=== PATIENT | female | born 1990 | race Caucasian/White ===

== ENCOUNTER 2017-04-13 01:03 | Emergency (ER) | payer OTHER ==
[~2017-04-13] VITALS: Ht 157.5 cm; Wt 89.0 kg
[~2017-04-13 01:03] MED LIST: /CELE20CA PO; /MOM400 PO; /ROPI5TA PO; ALEV1TAB PO; ATIV0.5T3 PO; AUGM875T27 PO; BACL10TA PO; BENA25TA4 PO; CELE40TA PO; COLA50CA3 PO; CYMB60CA3 PO; DILA4TAB PO; FLAG500T PO; HYDR-3363 PO; HYDR10EL PO; HYDR10TA16 PO; LEXA5SOL PO; LUNE1TAB9 PO; METH1TAB PO; METO5TAB2 PO; MULTCAP11 PO; NAPR500T PO; NEUR600T PO; NO HOME MEDS; OXYC-208 PO; OXYC30TA4 PO; OXYCO5TA PO; PERC5TAB6 PO; REGL5TAB2 PO; ROZE8TAB9 PO; TRAZ10TA PO; TYLE325T5 PO; VIST25CA PO; VITA100041 PO; ZYRT10TA2 PO; [UNRECOGNIZED DRUG - OTHER] EXT; [UNRECOGNIZED DRUG - OTHER] OU
[2017-04-13] MEDS ORDERED: OMEP40CA2 PO (01:13)
[2017-04-13] MEDS ORDERED: AUGM500T34 PO (03:07)
[2017-04-13] MEDS ORDERED: AUGMENTIN 500 MG TAB PO ONE (03:15)
[2017-04-13 03:28] VITALS: BP 138/68
== END 2017-04-13 03:30 | disposition home or self-care (01) ==
LOC: M ED 01:58
DX: S00.81XA Abrasion of other part of head, initial encounter (principal); S40.819A Abrasion of unspecified upper arm, initial encounter; S30.810A Abrasion of lower back and pelvis, initial encounter; S80.819A Abrasion, unspecified lower leg, initial encounter; W55.03XA Scratched by cat, initial encounter; Y92.89 Other specified places as the place of occurrence of the external cause; Y93.89 Activity, other specified; Y99.8 Other external cause status

== ENCOUNTER → 2017-08-15 | Outpatient (CLI) | payer OTHER ==
[~2017-08-15] MED LIST changes: +AUGM500T34 PO; -DILA4TAB PO; +DILA4TAB13 PO; -LUNE1TAB9 PO; +LUNE2TAB23 PO; +OMEP40CA2 PO; +PERC5TAB12 PO; -PERC5TAB6 PO; +ROZE8TAB16 PO; -ROZE8TAB9 PO
--- NOTE | 2017-08-16 02:43 | REP ---
Clinical: Shortness of breath . Comparison: 09/29/2016 . Technique: PA and lateral. Findings: The mediastinum and cardiac silhouette are normal. The lung alcantara are clear and without acute consolidation, effusion, or pneumothorax. The skeletal structures are intact and normal. Impression: 1. No acute cardiopulmonary process. If the patient remains symptomatic consider chest CT for further investigation. Signed by Wiley Johns MD 08/16/2017 02:34 A
== END ==
LOC: M RAD 16:33
PROVIDERS: ATTEND Nurse Practitioner
DX: R06.02 Shortness of breath (principal); R05 Cough

== ENCOUNTER → 2017-09-28 | Outpatient (REF) | payer OTHER | LOC: M LAB REF 18:51 | PROVIDERS: ATTEND Advanced Practice Midwife | DX: Z12.4 Encounter for screening for malignant neoplasm of cervix (principal) ==

== ENCOUNTER → 2018-01-20 | Outpatient (CLI) | payer OTHER ==
[2018-01-20 15:11] LABS: INR 0.84; PROTHROMBIN TIME 11.6 SECONDS (12.4-14.5)
[2018-01-20 15:25] LABS: ALPHA FETOPROTEIN TUMOR QUANT 3.2 NG/ML (<8.1)
[2018-01-20 15:26] LABS: HEPATITIS B SURFACE ANTIBODY POSITIVE (POSITIVE)
[2018-01-20 15:33] LABS: ALBUMIN/GLOBULIN RATIO 1.08 (1.00-1.93); ALKALINE PHOSPHATASE 153 U/L (45-117); ALT/SGPT 299 U/L (12-78); AST/SGOT 38 U/L (7-37); BILIRUBIN,DIRECT 0.1 MG/DL (0.0-0.2); BILIRUBIN,TOTAL 0.5 MG/DL (0.2-1.0); FERRITIN 75 NG/ML (8-252); IRON (FE) 126 UG/DL (50-170); PERCENT SATURATION 34.2 % (13.2-45.0); TOTAL IRON BINDING CAPACITY 368 UG/DL (250-450); TOTAL PROTEIN 7.7 GM/DL (6.4-8.2)
[2018-01-20 16:07] LABS: HEPATITIS A ANTIBODY IGM NEGATIVE (NEGATIVE)
[2018-01-23 14:25] LABS: ALBUMIN 4.54 GM/DL (3.29-5.55); ALPHA-1-GLOBULIN % 4.7 % (2.9-4.9); ALPHA-1-GLOBULINS 0.36 GM/DL (0.17-0.41); ALPHA-2-GLOBULINS 0.92 GM/DL (0.42-0.99); ALPHA-2-GLOBULINS % 11.9 % (7.1-11.8); BETA-1-GLOBULINS 0.48 GM/DL (0.28-0.60); BETA-1-GLOBULINS % 6.2 % (4.7-7.2); BETA-2-GLOBULINS 0.44 GM/DL (0.19-0.55); BETA-2-GLOBULINS % 5.7 % (3.2-6.5); GAMMA GLOBULIN % 12.5 % (11.1-18.8); GAMMA GLOBULINS 0.96 GM/DL (0.65-1.58)
[2018-01-24 00:07] LABS: ALPHA 1 ANTITRYPSIN 140 mg/dL (90-200); ANTI-MITOCHONDRIAL ANTIBODY 2.7 Units (0.0-20.0); ANTI-SMOOTH MUSCLE ANTIBODY 9 Units (0-19); ANTINUCLEAR ANTIBODIES DIRECT Negative (Negative); CERULOPLASMIN 27.3 mg/dL (19.0-39.0); EBV VIRAL CAPSID AG IgG > 600.0 U/mL (0.0-17.9); EBV VIRAL CAPSID AG IgM <36.0 U/mL (0.0-35.9); HEPATITIS A IgG TOTAL Negative (Negative); LIVER-KIDNEY MICROSOMAL ABY 0.4 Units (0.0-20.0); TISSUE TRANSGLUTAMINASE IgA 2 U/mL (0-3); TISSUE TRANSGLUTAMINASE IgG <2 U/mL (0-5)
[2018-01-24 08:09] LABS: HEPATITIS C QUANTITATION HCV Not Detected IU/mL (.)
== END ==
LOC: M LAB 13:31
DX: K75.89 Other specified inflammatory liver diseases (principal); R10.11 Right upper quadrant pain; R94.5 Abnormal results of liver function studies
CPT/HCPCS: 83550

== ENCOUNTER → 2018-02-20 | Outpatient (CLI) | payer OTHER ==
[~2018-02-20] MED LIST changes: -/CELE20CA PO; -/MOM400 PO; -/ROPI5TA PO; -ALEV1TAB PO; -ATIV0.5T3 PO; -AUGM500T34 PO; -AUGM875T27 PO; -BACL10TA PO; -BENA25TA4 PO; -CELE40TA PO; -COLA50CA3 PO; -CYMB60CA3 PO; -DILA4TAB13 PO; -FLAG500T PO; -HYDR-3363 PO; -HYDR10EL PO; -HYDR10TA16 PO; -LEXA5SOL PO; +LIDOCAINE 1% MDV 20ML VIAL As Ordered; -LUNE2TAB23 PO; -METH1TAB PO; -METO5TAB2 PO; -MULTCAP11 PO; -NAPR500T PO; -NEUR600T PO; -NO HOME MEDS; -OMEP40CA2 PO; -OXYC-208 PO; -OXYC30TA4 PO; -OXYCO5TA PO; -PERC5TAB12 PO; -REGL5TAB2 PO; -ROZE8TAB16 PO; -TRAZ10TA PO; -TYLE325T5 PO; -VIST25CA PO; -VITA100041 PO; -ZYRT10TA2 PO; -[UNRECOGNIZED DRUG - OTHER] EXT; -[UNRECOGNIZED DRUG - OTHER] OU
== END ==
LOC: M RADPRO 08:18
DX: K44.9 Diaphragmatic hernia without obstruction or gangrene (principal); Q45.3 Other congenital malformations of pancreas and pancreatic duct; R10.11 Right upper quadrant pain; R94.5 Abnormal results of liver function studies; R11.2 Nausea with vomiting, unspecified; Z79.899 Other long term (current) drug therapy; Z88.8 Allergy status to other drugs, medicaments and biological substances
CPT/HCPCS: 47000

== ENCOUNTER → 2018-04-03 | Outpatient (CLI) | payer OTHER | LOC: M WUC 09:50 | DX: S90.31XA Contusion of right foot, initial encounter (principal); X58.XXXA Exposure to other specified factors, initial encounter; Y92.89 Other specified places as the place of occurrence of the external cause | CPT/HCPCS: 73630 ==

== ENCOUNTER 2018-07-31 09:12 | Emergency (ER) | payer OTHER ==
[2018-07-31] MEDS: METOCLOPRAMIDE INJ 10MG/2ML VIAL (J2765) IV (10:24)
[2018-07-31] MEDS: KETOROLAC 30 MG/ML VIAL (J1885) IV (10:25)
[2018-07-31] MEDS: diphenhydrAMINE INJ 50MG/ML VIAL (J1200) IV (12:26)
[2018-07-31] MEDS: dexameTHASONE 20 MG/5 ML VIAL (J1100) IV (12:27)
[2018-07-31] MEDS: MORPHINE 4 MG/ML 1ML VIAL/SYRINGE (J2270) IV (12:27)
== END 2018-07-31 14:45 | disposition home or self-care (01) ==
LOC: M ED 09:12
DX: R51 Headache (principal); F41.9 Anxiety disorder, unspecified; J30.2 Other seasonal allergic rhinitis; Z88.5 Allergy status to narcotic agent; Z88.8 Allergy status to other drugs, medicaments and biological substances
CPT/HCPCS: J2270

== ENCOUNTER → 2018-08-10 | Outpatient (CLI) | payer OTHER ==
[2018-08-10 14:24] LABS: BASO % 0.5 % (0.0-1.0); EOS # 0.2 10^3/uL (0.0-0.50); EOS % 3.4 % (0.0-3.0); HEMATOCRIT 40.9 % (36.0-47.0); HEMOGLOBIN 13.8 g/dl (12.0-15.5); IMMATURE GRANULOCYTE % 0.3 % (0-3.0); LYMPH # 1.8 10^3/uL (1.5-6.5); LYMPH % 27.3 % (24.0-44.0); MEAN CORPUSCULAR HEMOGLOBIN 31.5 pg (27.0-33.0); MEAN CORPUSCULAR HGB CONC 33.7 g/dl (32.0-36.5); MEAN CORPUSCULAR VOLUME 93.4 fl (80.0-96.0); MONO # 0.5 10^3/uL (0.0-0.8); MONO % 7.5 % (0.0-5.0); PLATELET COUNT, AUTOMATED 268 10^3/uL (150-450); RED BLOOD COUNT 4.38 10^6/uL (4.00-5.40); RED CELL DISTRIBUTION WIDTH 11.9 % (11.5-14.5); WHITE BLOOD COUNT 6.5 10^3/uL (4.0-10.0)
[2018-08-10 14:35] LABS: INR 0.92; PROTHROMBIN TIME 12.5 SECONDS (12.1-14.4)
[2018-08-10 15:04] LABS: ALBUMIN 3.9 GM/DL (3.2-5.2); ALKALINE PHOSPHATASE 106 U/L (45-117); ALT/SGPT 61 U/L (12-78); AST/SGOT 25 U/L (7-37); BILIRUBIN,DIRECT 0.1 MG/DL (0.0-0.2); BILIRUBIN,TOTAL 0.4 MG/DL (0.2-1.0); TOTAL PROTEIN 6.9 GM/DL (6.4-8.2)
[2018-08-11 12:38] LABS: HEPATITIS C VIRUS ABY INDEX < 0.0 INDEX (<0.8)
== END ==
LOC: M LAB 13:13
DX: G90.1 Familial dysautonomia [Riley-Day] (principal); I95.1 Orthostatic hypotension; R94.5 Abnormal results of liver function studies
CPT/HCPCS: 84443

== ENCOUNTER 2018-08-15 16:48 | Emergency (ER) | payer OTHER ==
[2018-08-15] MEDS: NS 1,000 ML IV (17:30)
[2018-08-15] MEDS: MORPHINE 4 MG/ML 1ML VIAL/SYRINGE (J2270) IV ×2 (18:00→19:13)
[2018-08-15 18:08] LABS: BASO # 0.1 10^3/uL (0.0-0.2); BASO % 0.6 % (0.0-1.0); EOS # 0.2 10^3/uL (0.0-0.50); HEMATOCRIT 42.7 % (36.0-47.0); HEMOGLOBIN 14.7 g/dl (12.0-15.5); IMMATURE GRANULOCYTE % 0.1 % (0-3.0); LYMPH # 2.1 10^3/uL (1.5-6.5); LYMPH % 24.5 % (24.0-44.0); MEAN CORPUSCULAR HEMOGLOBIN 31.5 pg (27.0-33.0); MEAN CORPUSCULAR HGB CONC 34.4 g/dl (32.0-36.5); MEAN CORPUSCULAR VOLUME 91.6 fl (80.0-96.0); MONO # 0.5 10^3/uL (0.0-0.8); NEUTROPHILS # 5.6 10^3/uL (1.8-7.7); NEUTROPHILS % 66.8 % (36.0-66.0); PLATELET COUNT, AUTOMATED 305 10^3/uL (150-450); RED BLOOD COUNT 4.66 10^6/uL (4.00-5.40); WHITE BLOOD COUNT 8.5 10^3/uL (4.0-10.0)
[2018-08-15 18:12] LABS: CONTROL LINE UCG INT CTR LINE PRESENT; URINE PREG TEST NEGATIVE (NEGATIVE)
[2018-08-15 18:23] LABS: KETONE, URINE AUTO RFX NEGATIVE (NEGATIVE); LEUKOCYTE ESTERASE UR AUTO RFX NEGATIVE (NEGATIVE); MUCUS, URINE RFX SMALL (NEGATIVE); NITRITE, URINE AUTO RFX NEGATIVE (NEGATIVE); RBC, URINE AUTO RFX 0 /HPF (0-3); SPECIFIC GRAVITY UR AUTO RFX 1.017 (1.002-1.035); SQUAM EPITHELIAL CELL UR AURFX 1 /HPF (0-6); WBC, URINE AUTO RFX 0 /HPF (0-3)
[2018-08-15 18:28] LABS: INR 0.93; PARTIAL THROMBOPLASTIN TIME 28.6 SECONDS (25.4-37.6); PROTHROMBIN TIME 12.6 SECONDS (12.1-14.4)
[2018-08-15 18:31] LABS: LACTIC ACID SEPSIS PROTOCOL 1.1 MMOL/L (0.4-2.0)
[2018-08-15 18:37] LABS: ALBUMIN 4.2 GM/DL (3.2-5.2); ALBUMIN/GLOBULIN RATIO 1.08 (1.00-1.93); ALKALINE PHOSPHATASE 144 U/L (45-117); ALT/SGPT 107 U/L (12-78); ANION GAP 10 MEQ/L (8-16); AST/SGOT 109 U/L (7-37); BILIRUBIN,DIRECT 0.3 MG/DL (0.0-0.2); BILIRUBIN,TOTAL 0.7 MG/DL (0.2-1.0); BLOOD UREA NITROGEN 10 MG/DL (7-18); CALCIUM LEVEL 8.6 MG/DL (8.5-10.1); CARBON DIOXIDE LEVEL 24 MEQ/L (21-32); CHLORIDE LEVEL 106 MEQ/L (98-107); CK-MB VALUE MASS < 1.0 NG/ML (<3.6); CPK CREATINE PHOSPHOKINASE 122 U/L (26-192); CREATININE FOR GFR 0.74 MG/DL (0.55-1.30); FREE T4 1.25 NG/DL (0.76-1.46); GLOMERULAR FILTRATION RATE > 60.0 (>60); GLUCOSE, FASTING 91 MG/DL (70-100); LIPASE 96 U/L (73-393); MB/CK RELATIVE INDEX 0.82 (< OR =4); POTASSIUM SERUM 3.5 MEQ/L (3.5-5.1); SODIUM LEVEL 140 MEQ/L (136-145); TOTAL PROTEIN 8.1 GM/DL (6.4-8.2); TROPONIN I < 0.02 NG/ML (< 0.10)
[2018-08-15 19:00] LABS: D-DIMER QUANT < 270.0 ng/ml (<500)
[2018-08-15] MEDS ORDERED: ONDANSETRON 4MG/2ML VIAL (J2405) As Ordered (19:11)
[2018-08-15] MEDS: ONDANSETRON 4MG/2ML VIAL (J2405) IV (19:13)
[2018-08-15] MEDS ORDERED: ISOVUE-370 76% 100ML VIAL (Q9967) As Ordered (19:14)
[2018-08-15] MEDS: HYDROMORPHONE HCL 0.5 MG/ 0.5 ML SYRINGE (J1170 PER 1) IV (19:37)
== END 2018-08-15 20:36 | disposition home or self-care (01) ==
LOC: M ED 16:48
DX: R10.11 Right upper quadrant pain (principal); R10.31 Right lower quadrant pain; R79.89 Other specified abnormal findings of blood chemistry; G90.9 Disorder of the autonomic nervous system, unspecified; G43.909 Migraine, unspecified, not intractable, without status migrainosus; M54.9 Dorsalgia, unspecified; Z87.42 Personal history of other diseases of the female genital tract; Z88.5 Allergy status to narcotic agent; J30.2 Other seasonal allergic rhinitis; Z88.8 Allergy status to other drugs, medicaments and biological substances; Z79.899 Other long term (current) drug therapy
CPT/HCPCS: J2270

== ENCOUNTER → 2018-08-18 | Outpatient (CLI) | payer OTHER ==
[2018-08-18 14:28] LABS: HEMATOCRIT 39.4 % (36.0-47.0); HEMOGLOBIN 13.3 g/dl (12.0-15.5); MEAN CORPUSCULAR HEMOGLOBIN 31.8 pg (27.0-33.0); MEAN CORPUSCULAR HGB CONC 33.8 g/dl (32.0-36.5); MEAN CORPUSCULAR VOLUME 94.3 fl (80.0-96.0); PLATELET COUNT, AUTOMATED 296 10^3/uL (150-450); RED BLOOD COUNT 4.18 10^6/uL (4.00-5.40); WHITE BLOOD COUNT 6.7 10^3/uL (4.0-10.0)
[2018-08-18 14:32] LABS: INR 0.94; PROTHROMBIN TIME 12.7 SECONDS (12.1-14.4)
[2018-08-18 14:42] LABS: ALBUMIN 4.1 GM/DL (3.2-5.2); ALBUMIN/GLOBULIN RATIO 1.32 (1.00-1.93); ALKALINE PHOSPHATASE 104 U/L (45-117); ALT/SGPT 60 U/L (12-78); ANION GAP 7 MEQ/L (8-16); AST/SGOT 25 U/L (7-37); BILIRUBIN,TOTAL 0.6 MG/DL (0.2-1.0); BLOOD UREA NITROGEN 11 MG/DL (7-18); CALCIUM LEVEL 9.4 MG/DL (8.5-10.1); CARBON DIOXIDE LEVEL 29 MEQ/L (21-32); CHLORIDE LEVEL 107 MEQ/L (98-107); CREATININE FOR GFR 0.74 MG/DL (0.55-1.30); GAMMA GLUTAMYLTRANSPEPTIDASE 174 U/L (5-55); GLOMERULAR FILTRATION RATE > 60.0 (>60); GLUCOSE, FASTING 91 MG/DL (70-100); POTASSIUM SERUM 3.6 MEQ/L (3.5-5.1); SODIUM LEVEL 143 MEQ/L (136-145); TOTAL PROTEIN 7.2 GM/DL (6.4-8.2)
[2018-08-18 14:49] LABS: ALPHA FETOPROTEIN TUMOR QUANT 2.7 NG/ML (<8.1)
[2018-08-20 01:40] LABS: ANTI-SMOOTH MUSCLE ANTIBODY 8 Units (0-19)
[2018-08-20 01:40] LABS: ANTINUCLEAR ANTIBODIES DIRECT Negative (Negative); HERPES ZOSTER, VARICELLA IgG 376 index (Immune >165); HERPES ZOSTER, VARICELLA IgM <0.91 index (0.00-0.90)
[2018-08-22 00:07] LABS: ANGIOTENSIN 1 CONVERTING ENZYM 41 U/L (14-82)
== END ==
LOC: M LAB 13:05
DX: R10.11 Right upper quadrant pain (principal); K44.9 Diaphragmatic hernia without obstruction or gangrene; R10.13 Epigastric pain
CPT/HCPCS: 82977

== ENCOUNTER → 2018-09-08 | Outpatient (CLI) | payer OTHER | LOC: M RAD 08:04 | DX: R11.2 Nausea with vomiting, unspecified (principal); K75.89 Other specified inflammatory liver diseases; R10.84 Generalized abdominal pain; R94.5 Abnormal results of liver function studies; K76.0 Fatty (change of) liver, not elsewhere classified; Z90.49 Acquired absence of other specified parts of digestive tract | CPT/HCPCS: 76700 ==

== ENCOUNTER → 2018-09-12 | Outpatient (REF) | payer OTHER ==
[2018-09-19 14:14] LABS: CALPROTECTIN STOOL 48 ug/g (0-120)
== END ==
LOC: M LAB REF 09-13 11:25
DX: R10.11 Right upper quadrant pain (principal); K44.9 Diaphragmatic hernia without obstruction or gangrene; R10.13 Epigastric pain

== ENCOUNTER → 2018-09-13 | Outpatient (CLI) | payer OTHER ==
[2018-09-13 11:43] LABS: ALBUMIN 4.3 GM/DL (3.2-5.2); ALKALINE PHOSPHATASE 153 U/L (45-117); ALT/SGPT 101 U/L (12-78); AST/SGOT 41 U/L (7-37); BILIRUBIN,DIRECT 0.1 MG/DL (0.0-0.2); BILIRUBIN,TOTAL 0.5 MG/DL (0.2-1.0); TOTAL PROTEIN 7.6 GM/DL (6.4-8.2)
== END ==
LOC: M LAB 10:28
DX: R10.11 Right upper quadrant pain (principal)
CPT/HCPCS: 80076

== ENCOUNTER → 2018-11-10 | Outpatient (CLI) | payer OTHER ==
[~2018-11-10] MED LIST changes: +/CELE20CA PO; +/MOM400 PO; +/ROPI5TA PO; +ALEV1TAB PO; +ATIV0.5T3 PO; +AUGM500T34 PO; +AUGM875T27 PO; +BACL10TA PO; +BENA25TA4 PO; +CELE40TA PO; +COLA50CA3 PO; +CYMB60CA3 PO; +DILA4TAB13 PO; +FLAG500T PO; +HYDR-3363 PO; +HYDR10EL PO; +HYDR10TA16 PO; +LEXA5SOL PO; -LIDOCAINE 1% MDV 20ML VIAL As Ordered; +LUNE2TAB23 PO; +METH1TAB PO; +METO5TAB2 PO; +MORP15TA2 PO; +MULTCAP11 PO; +NAPR500T PO; +NEUR600T PO; +NO HOME MEDS; +OMEP40CA2 PO; +OXYC-208 PO; +OXYC30TA4 PO; +OXYCO5TA PO; +PERC5TAB12 PO; +REGL5TAB2 PO; +ROZE8TAB16 PO; +TRAZ10TA PO; +TYLE325T5 PO; +VIST25CA PO; +VITA100041 PO; +ZYRT10CA5 PO; +[UNRECOGNIZED DRUG - OTHER] EXT; +[UNRECOGNIZED DRUG - OTHER] OU
[2018-11-10 13:23] LABS: TOTAL PROTEIN 7.3 GM/DL (6.4-8.2)
[2018-11-11 12:48] LABS: CRYOGLOBULINS NEGATIVE (NEGATIVE)
[2018-11-14 12:58] LABS: ALBUMIN 4.39 GM/DL (3.29-5.55); ALBUMIN % 60.2 % (55.8-66.1); ALPHA-1-GLOBULIN % 4.5 % (2.9-4.9); ALPHA-1-GLOBULINS 0.33 GM/DL (0.17-0.41); ALPHA-2-GLOBULINS 0.86 GM/DL (0.42-0.99); ALPHA-2-GLOBULINS % 11.8 % (7.1-11.8); BETA-1-GLOBULINS 0.42 GM/DL (0.28-0.60); BETA-1-GLOBULINS % 5.8 % (4.7-7.2); BETA-2-GLOBULINS % 5.5 % (3.2-6.5); GAMMA GLOBULIN % 12.2 % (11.1-18.8); GAMMA GLOBULINS 0.89 GM/DL (0.65-1.58)
== END ==
LOC: M LAB 12:23
PROVIDERS: ATTEND Internal Medicine
DX: R70.0 Elevated erythrocyte sedimentation rate (principal); R94.5 Abnormal results of liver function studies; R21 Rash and other nonspecific skin eruption

== ENCOUNTER 2018-12-12 12:33 | Emergency (ER) | payer OTHER ==
[~2018-12-12] VITALS: Ht 157.5 cm; Wt 90.9 kg
[2018-12-12] MEDS ORDERED: TRAM50TA2 (12:46)
[2018-12-12] MEDS ORDERED: AIMO70IN (12:46)
[2018-12-12] MEDS ORDERED: RIZA10TA4 (12:46)
[2018-12-12] MEDS ORDERED: diphenhydrAMINE INJ 50MG/ML VIAL (J1200) IV STA (13:36)
[2018-12-12] MEDS ORDERED: METOCLOPRAMIDE INJ 10MG/2ML VIAL (J2765) IV ONE (13:45)
[2018-12-12] MEDS ORDERED: KETOROLAC 30 MG/ML VIAL (J1885) IV ONE (13:45)
[2018-12-12] MEDS ORDERED: NS 1,000 ML IV ONE (13:45)
[2018-12-12 13:59] LABS: BASO # 0.1 10^3/uL (0.0-0.2); BASO % 0.6 % (0.0-1.0); EOS # 0.3 10^3/uL (0.0-0.50); EOS % 4.2 % (0.0-3.0); HEMATOCRIT 44.5 % (36.0-47.0); HEMOGLOBIN 15.1 g/dl (12.0-15.5); LYMPH # 1.8 10^3/uL (1.5-6.5); LYMPH % 21.4 % (24.0-44.0); MEAN CORPUSCULAR HEMOGLOBIN 31.8 pg (27.0-33.0); MEAN CORPUSCULAR HGB CONC 33.9 g/dl (32.0-36.5); MEAN CORPUSCULAR VOLUME 93.7 fl (80.0-96.0); MONO # 0.5 10^3/uL (0.0-0.8); MONO % 5.8 % (0.0-5.0); NEUTROPHILS # 5.5 10^3/uL (1.8-7.7); NEUTROPHILS % 67.8 % (36.0-66.0); PLATELET COUNT, AUTOMATED 292 10^3/uL (150-450); RED BLOOD COUNT 4.75 10^6/uL (4.00-5.40); WHITE BLOOD COUNT 8.2 10^3/uL (4.0-10.0)
[2018-12-12 14:32] LABS: ALBUMIN 4.4 GM/DL (3.2-5.2); ALT/SGPT 31 U/L (12-78); BILIRUBIN,DIRECT 0.1 MG/DL (0.0-0.2); BILIRUBIN,TOTAL 0.4 MG/DL (0.2-1.0); BLOOD UREA NITROGEN 11 MG/DL (7-18); CALCIUM LEVEL 9.2 MG/DL (8.5-10.1); CARBON DIOXIDE LEVEL 26 MEQ/L (21-32); CHLORIDE LEVEL 104 MEQ/L (98-107); CREATININE FOR GFR 0.74 MG/DL (0.55-1.30); GLOMERULAR FILTRATION RATE > 60.0 (>60); GLUCOSE, FASTING 92 MG/DL (70-100); SODIUM LEVEL 138 MEQ/L (136-145); TOTAL PROTEIN 7.6 GM/DL (6.4-8.2)
--- NOTE | 2018-12-12 14:38 | REP ---
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 There is no intraparenchymal hemorrhage, acute infarct, mass or midline shift. The ventricular system is normal in appearance. There is no extra cerebral collection. There is no fracture. Mucosal thickening is present in the the ethmoid sinuses. IMPRESSION: There is no intracranial lesion. Electronically Signed by Akira Garcias MD 12/12/2018 02:30 P
--- NOTE | 2018-12-12 14:51 | REP ---
CHEST, TWO VIEWS: There is no evidence of acute infiltrate. No pleural effusion is seen. The heart is normal in size. The mediastinal silhouette is unremarkable. The visualized osseous structures are intact. IMPRESSION: No acute pulmonary disease. Electronically Signed by Dave Ta MD 12/12/2018 05:30 P
[2018-12-12] MEDS: HYDROMORPHONE HCL 0.5 MG/ 0.5 ML SYRINGE (J1170 PER 1) IV PRN ×2 (15:26→16:25)
[2018-12-12 16:25] LABS: MONO SCRN NEGATIVE (NEGATIVE)
[2018-12-12 16:29] VITALS: BP 120/61
== END 2018-12-12 17:05 | disposition home or self-care (01) ==
LOC: M ED 12:33
DX: B34.9 Viral infection, unspecified (principal); R51 Headache
CPT/HCPCS: 70450; 71046; 80048; 80076; 85025; 85379; 86308; 96374; 96375; 96376; 99284; J1170; J1200; J1885; J2765

== ENCOUNTER → 2019-01-05 | Outpatient (CLI) | payer OTHER ==
[~2019-01-05] MED LIST changes: +AIMO70IN; +RIZA10TA4; +TRAM50TA2
[2019-01-05 15:05] LABS: INR 0.92; PROTHROMBIN TIME 12.5 SECONDS (12.1-14.4)
[2019-01-05 15:06] LABS: PARTIAL THROMBOPLASTIN TIME 30.3 SECONDS (25.4-37.6)
[2019-01-05 15:15] LABS: C REACTIVE PROTEIN QUANTITATIV < 0.30 MG/DL (0.00-0.30); LIPASE 130 U/L (73-393)
== END ==
LOC: M LAB 13:41
PROVIDERS: ATTEND Internal Medicine Gastroenterology
DX: K76.1 Chronic passive congestion of liver (principal); R94.5 Abnormal results of liver function studies; R50.9 Fever, unspecified; L53.9 Erythematous condition, unspecified

== ENCOUNTER 2019-01-18 20:52 | Emergency (ER) | payer OTHER ==
[~2019-01-18] VITALS: Ht 157.5 cm; Wt 88.6 kg
[~2019-01-18 20:52] MED LIST changes: -AIMO70IN; +AIMO70IN IM; -RIZA10TA4; +RIZA10TA4 PO; -TRAM50TA2; +TRAM50TA2 PO
[2019-01-18 23:25] LABS: BASO # 0.1 10^3/uL (0.0-0.2); BASO % 0.6 % (0.0-1.0); EOS # 0.2 10^3/uL (0.0-0.50); EOS % 2.3 % (0.0-3.0); HEMATOCRIT 38.8 % (36.0-47.0); HEMOGLOBIN 13.2 g/dl (12.0-15.5); LYMPH # 2.4 10^3/uL (1.5-6.5); LYMPH % 26.8 % (24.0-44.0); MEAN CORPUSCULAR HEMOGLOBIN 31.4 pg (27.0-33.0); MEAN CORPUSCULAR VOLUME 92.4 fl (80.0-96.0); MONO # 0.6 10^3/uL (0.0-0.8); MONO % 6.5 % (0.0-5.0); NEUTROPHILS # 5.6 10^3/uL (1.8-7.7); NEUTROPHILS % 63.6 % (36.0-66.0); PLATELET COUNT, AUTOMATED 266 10^3/uL (150-450); WHITE BLOOD COUNT 8.8 10^3/uL (4.0-10.0)
[2019-01-18 23:51] LABS: BLOOD UREA NITROGEN 16 MG/DL (7-18); CALCIUM LEVEL 8.9 MG/DL (8.5-10.1); CARBON DIOXIDE LEVEL 27 MEQ/L (21-32); CHLORIDE LEVEL 104 MEQ/L (98-107); CK-MB VALUE MASS < 1.0 NG/ML (<3.6); CPK CREATINE PHOSPHOKINASE 115 U/L (26-192); CREATININE FOR GFR 0.78 MG/DL (0.55-1.30); GLOMERULAR FILTRATION RATE > 60.0 (>60); GLUCOSE, FASTING 94 MG/DL (70-100); MB/CK RELATIVE INDEX 0.87 (< OR =4); POTASSIUM SERUM 3.7 MEQ/L (3.5-5.1); SODIUM LEVEL 140 MEQ/L (136-145); TROPONIN I < 0.02 NG/ML (< 0.10)
[2019-01-19] MEDS ORDERED: ISOVUE-370 76% 125ML VIAL (Q9967 PER ML) As Ordered ONE (00:11)
[2019-01-19] MEDS ORDERED: KETOROLAC 30 MG/ML VIAL (J1885) IV ONE (00:15)
[2019-01-19 00:44] LABS: ALBUMIN 4.2 GM/DL (3.2-5.2); ALT/SGPT 39 U/L (12-78); BILIRUBIN,DIRECT 0.1 MG/DL (0.0-0.2); BILIRUBIN,TOTAL 0.5 MG/DL (0.2-1.0); TOTAL PROTEIN 7.4 GM/DL (6.4-8.2)
--- NOTE | 2019-01-19 00:53 | REPVR ---
EXAM: CT Angiography Chest With Contrast EXAM DATE/TIME: 01/19/2019 12:05 AM CLINICAL HISTORY: 28 years old, female; Pain; Chest pain; Left-sided chest pain TECHNIQUE: Imaging protocol: Axial computed tomographic angiography images of the chest with intravenous contrast using CT angiography protocol. Coronal and sagittal reformatted images were created and reviewed. 3D rendering: MIP reconstructed images were created and reviewed. Radiation optimization: All CT scans at this facility use at least one of these dose optimization techniques: automated exposure control; mA and/or kV adjustment per patient size (includes targeted exams where dose is matched to clinical indication); or iterative reconstruction. Contrast material: iso Contrast volume: 75 ml Contrast route: ac COMPARISON: CT Chest with contrast 09/14/2012 1:05 AM FINDINGS: Pulmonary arteries: Mildly enlarged main pulmonary artery suggestive of pulmonary arterial hypertension. Aorta: Normal. No aortic aneurysm. No aortic dissection. Lungs: Calcified granuloma in the lingula with a small adjacent reticulonodular opacity. Pleural space: Normal. No pneumothorax. No pleural effusion. Heart: Normal. No cardiomegaly. No pericardial effusion. Gallbladder and bile ducts: Status post cholecystectomy. Lymph nodes: Calcified subcarinal and left hilar lymph nodes. Bones/joints: Mild dextroscoliosis.. No acute fracture. Soft tissues: Unremarkable. IMPRESSION: 1. Mildly enlarged main pulmonary artery suggestive of pulmonary arterial hypertension. No evidence of acute pulmonary embolic disease. 2. Calcified granuloma in the lingula with a small adjacent reticulonodular opacity. 3. No evidence of thoracic aortic aneurysm or dissection. Electronically signed by: Flavio Clancy On 01/19/2019 00:53:30 AM
[2019-01-19] MEDS ORDERED: NS 1,000 ML IV ONE (02:00)
[2019-01-19 02:52] LABS: CK-MB VALUE MASS < 1.0 NG/ML (<3.6); CPK CREATINE PHOSPHOKINASE 108 U/L (26-192); MB/CK RELATIVE INDEX 0.93 (< OR =4); TROPONIN I < 0.02 NG/ML (< 0.10)
[2019-01-19] MEDS ORDERED: ONDANSETRON 4MG/2ML VIAL (J2405) IV ONE (03:15)
[2019-01-19 04:00] VITALS: BP 93/51
--- NOTE | 2019-01-19 06:38 | ECGEPIP ---
Stationary ECG Study [facility] - ED Test Date: 2019-01-18 Pat Name: MILENA BOGGS Department: Room: - Gender: F Larry Operator: REZA : 1990 Requested By: NITO JEFF Order Number: [id number] Reading MD: Francisco Llamas Measurements Intervals [place] Rate: 75 P: 51 VA: 128 QRS: 26 QRSD: 90 T: 27 QT: 401 QTc: 448 Interpretive Statements SINUS RHYTHM NSTTW ABNORMALITIES SIMILAR TO 08/15/18 Electronically Signed On 01-19-2019 6:37:58 EDT by Francisco Llamas
--- NOTE | 2019-01-19 09:01 | REP ---
Chest x-ray: Two views. History: Chest pain . Comparison study: Comparison is made with prior radiographs dating back to January 27, 2014. . Findings: The lungs are well inflated and free of infiltrate. The pleural angles are sharp. The heart size is normal. Pulmonary vasculature is not increased. No significant bony abnormality is seen. There is a calcified granuloma in the left mid lung zone which is unchanged from the 2014 study. Impression: No active disease. Old granuloma on the left. . Electronically Signed by Alton Coleman MD 01/19/2019 08:52 A
--- NOTE | 2019-01-19 10:26 | ED PDOC ---
Post-Departure Follow-Up ricardo bonilla and dawit faxed formal report of cta for fu Bryce Marino MD Jan 19, 2019 10:26
[2019-01-29] MEDS ORDERED: VENTAER INH (13:47)
[2019-01-29] MEDS ORDERED: PROM25TA12 PO (13:47)
== END 2019-01-19 04:14 | disposition home or self-care (01) ==
LOC: M ED 20:52
DX: R55 Syncope and collapse (principal); R07.9 Chest pain, unspecified; I28.8 Other diseases of pulmonary vessels; G93.5 Compression of brain; G90.9 Disorder of the autonomic nervous system, unspecified; G43.909 Migraine, unspecified, not intractable, without status migrainosus; J45.909 Unspecified asthma, uncomplicated; Z87.42 Personal history of other diseases of the female genital tract
CPT/HCPCS: 36415; 71046; 71275; 80048; 80076; 81025; 82550; 82553; 85025; 93005; 96374; 96375; 99285; J1885; J2405; Q9967

== ENCOUNTER → 2019-01-24 | Outpatient (CLI) | payer OTHER ==
[~2019-01-24] MED LIST changes: +PROM25TA12 PO; +VENTAER INH
--- NOTE | 2019-01-24 15:14 | REP ---
PELVIC SONOGRAPHY: HISTORY: Abnormal menstrual bleeding. History of IUD. Right lower quadrant pain. FINDINGS: Transabdominal and transvaginal scanning are performed. Uterine dimensions are normal 8.7 x 3.4 x 4.5 cm. An IUD is seen in the uterine endometrium in what appears to be good position. Some fluid is seen in the endocervical canal surrounding the IUD strings. No focal uterine mass is seen. The right ovary measures 2.9 x 2.1 x 2.8 cm. Left ovarian dimensions are 2.8 x 2.3 x 2.4 cm. Ovarian Doppler flow is intact bilaterally. Resistive indices are 0.50 on the left and 0.42 on the right. IMPRESSION: IUD in position. Endocervical fluid is seen. No morphologic abnormality. Electronically Signed by Alton Coleman MD 01/24/2019 04:06 P
== END ==
LOC: M RAD 09:46
PROVIDERS: ATTEND Advanced Practice Midwife
DX: R10.31 Right lower quadrant pain (principal); Z97.5 Presence of (intrauterine) contraceptive device

== ENCOUNTER 2019-02-01 12:11 | Day surgery (SDC) | payer OTHER ==
[~2019-02-01] VITALS: Ht 157.5 cm; Wt 89.4 kg
[~2019-02-01 12:11] MED LIST changes: -/CELE20CA PO; -/MOM400 PO; -/ROPI5TA PO; +CELE1CAP4 PO; +GRX1OIN EXT; +LIDOCAINE 2% INJ 100 MG/5 ML SDV (FOR ANES.) As Ordered ONE; +LR 1,000 ML IV ONE; +MIDAZOLAM INJ 2 MG/2 ML VIAL (J2250) As Ordered ONE; +MILK10SU PO; +ONDANSETRON 4MG/2ML VIAL (J2405) As Ordered ONE; +OXYC-517 PO; -OXYCO5TA PO; +PROPOFOL 200 MG/20 ML VIAL As Ordered ONE; +REQU1TAB15 PO; +TRAZ-164 PO; -TRAZ10TA PO; -[UNRECOGNIZED DRUG - OTHER] EXT; +fentaNYL 100 MCG/2 ML INJECTION (J3010) As Ordered ONE
[2019-02-01 12:51] LABS: URINE PREG TEST NEGATIVE (NEGATIVE)
[2019-02-01] MEDS ORDERED: MIDAZOLAM INJ 2 MG/2 ML VIAL (J2250) As Ordered ONE (13:41)
[2019-02-01] MEDS ORDERED: LIDOCAINE 1% SDV INJ 30 ML VIAL As Ordered ONE (13:42)
[2019-02-01] MEDS ORDERED: KETOROLAC 60 MG/2 ML VIAL (J1885) As Ordered ONE (14:07)
[2019-02-01 15:10] VITALS: BP 114/70
--- NOTE | 2019-02-01 15:10 | RO ---
DATE OF PROCEDURE: 02/01/2019 PREOPERATIVE DIAGNOSIS: Unexplained syncope. POSTOPERATIVE DIAGNOSIS: Unexplained syncope. PROCEDURE PERFORMED: Implantation of [employer]tronic implantable loop recorder. SURGEON: Wellington Rich MD SOFTWARE DEVELOPMENT ANALYST: None. ANESTHESIA: Lidocaine 1% x 15 mL, monitored anesthetic care. FINDINGS: Unexplained syncope. No specimens. Estimated blood loss less than 3 mL. No blood products replaced. No drains. No complications. PROCEDURE DESCRIPTION: Patient was prepped and draped over the sternum and left anterior chest. Lidocaine 1% x 15 mL was used for local anesthetic. An incision approximately 1 cm in length was made with a #15 blade approximately 1 inch lateral to the left parasternal border at approximately the level of the patient's nipple line. The plastic guide on the insertion tool was then placed into the incision and advanced parallel to the skin in the subcutaneous fat in caudal direction. The insertion tool was rotated 180 degrees. The plunger was then placed into the insertion tool and used to advance the loop recorder into subcutaneous fat. The plunger was then removed and then the insertion tool was removed leaving the loop recorder behind in situ. The initial R wave was 0.31 mV. Pressure was held for 4 minutes to permit hemostasis. I then helped to improve approximation of the incision with a temporary use of #4-0 Biosyn suture, which was placed subcuticular with the ends protruding at both ends beyond the incision through the skin. An additional 2 minutes of pressure was then placed over the incision for additional further hemostasis before applying Dermabond. Two layers of Dermabond was applied. Once the Dermabond was dry, Mastisol was applied above and below the Dermabond being careful not to get any on the Dermabond. Next, two 1/2 inch Steri-Strips, which were cut in half, were placed perpendicular to the incision line. The patient was quite anxious throughout the procedure. Otherwise, the procedure was tolerated well. The implantable loop recorder implanted was a Localler Reveal LINQ, model #LNQ11 with serial #[id number].
== END 2019-02-01 15:15 | disposition home or self-care (01) ==
LOC: M SDC 12:11
PROVIDERS: ATTEND Internal Medicine Cardiovascular Disease
DX: R55 Syncope and collapse (principal); Z79.899 Other long term (current) drug therapy; Z88.8 Allergy status to other drugs, medicaments and biological substances; Z87.898 Personal history of other specified conditions; Q07.00 Arnold-Chiari syndrome without spina bifida or hydrocephalus
CPT/HCPCS: 33285; 84703; C1764; J0690; J1885; J2250; J2405; J3010

== ENCOUNTER → 2019-03-05 | Outpatient (REF) | payer OTHER ==
[~2019-03-05] MED LIST changes: -LIDOCAINE 2% INJ 100 MG/5 ML SDV (FOR ANES.) As Ordered ONE; -LR 1,000 ML IV ONE; -MIDAZOLAM INJ 2 MG/2 ML VIAL (J2250) As Ordered ONE; -ONDANSETRON 4MG/2ML VIAL (J2405) As Ordered ONE; -PROPOFOL 200 MG/20 ML VIAL As Ordered ONE; -fentaNYL 100 MCG/2 ML INJECTION (J3010) As Ordered ONE
== END ==
LOC: M LAB REF 18:13
PROVIDERS: ATTEND Surgery
DX: L02.211 Cutaneous abscess of abdominal wall (principal)

== ENCOUNTER → 2019-06-18 | Outpatient (CLI) | payer OTHER ==
[2019-06-18 21:58] LABS: HEMATOCRIT 40.2 % (36.0-47.0); HEMOGLOBIN 13.6 g/dl (12.0-15.5); MEAN CORPUSCULAR HEMOGLOBIN 31.7 pg (27.0-33.0); MEAN CORPUSCULAR HGB CONC 33.8 g/dl (32.0-36.5); MEAN CORPUSCULAR VOLUME 93.7 fl (80.0-96.0); PLATELET COUNT, AUTOMATED 276 10^3/uL (150-450); RED BLOOD COUNT 4.29 10^6/uL (4.00-5.40); WHITE BLOOD COUNT 9.1 10^3/uL (4.0-10.0)
[2019-06-18 22:20] LABS: ALT/SGPT 43 U/L (12-78); BILIRUBIN,DIRECT < 0.1 MG/DL (0.0-0.2); BILIRUBIN,TOTAL 0.2 MG/DL (0.2-1.0); BLOOD UREA NITROGEN 14 MG/DL (7-18); CALCIUM LEVEL 9.8 MG/DL (8.5-10.1); CARBON DIOXIDE LEVEL 29 MEQ/L (21-32); CHLORIDE LEVEL 108 MEQ/L (98-107); CREATININE FOR GFR 0.78 MG/DL (0.55-1.30); GLOMERULAR FILTRATION RATE > 60.0 (>60); GLUCOSE, FASTING 83 MG/DL (70-100); POTASSIUM SERUM 3.9 MEQ/L (3.5-5.1); SODIUM LEVEL 140 MEQ/L (136-145); TOTAL PROTEIN 7.1 GM/DL (6.4-8.2)
[2019-06-20 14:07] LABS: ANTINUCLEAR ANTIBODIES DIRECT Negative (Negative)
== END ==
LOC: M LAB 21:16
PROVIDERS: ATTEND Internal Medicine Gastroenterology
DX: R10.11 Right upper quadrant pain (principal); R76.8 Other specified abnormal immunological findings in serum; R94.5 Abnormal results of liver function studies; K90.0 Celiac disease

== ENCOUNTER → 2019-07-10 | Outpatient (CLI) | payer OTHER ==
[2019-07-10 10:13] LABS: HEMATOCRIT 40.5 % (36.0-47.0); HEMOGLOBIN 13.8 g/dl (12.0-15.5); MEAN CORPUSCULAR HEMOGLOBIN 32.1 pg (27.0-33.0); MEAN CORPUSCULAR HGB CONC 34.1 g/dl (32.0-36.5); MEAN CORPUSCULAR VOLUME 94.2 fl (80.0-96.0); PLATELET COUNT, AUTOMATED 275 10^3/uL (150-450); WHITE BLOOD COUNT 5.8 10^3/uL (4.0-10.0)
[2019-07-10 10:37] LABS: ALBUMIN 3.8 GM/DL (3.2-5.2); ALT/SGPT 199 U/L (12-78); BILIRUBIN,TOTAL 0.4 MG/DL (0.2-1.0); BLOOD UREA NITROGEN 10 MG/DL (7-18); C REACTIVE PROTEIN QUANTITATIV 0.51 MG/DL (0.00-0.30); CALCIUM LEVEL 9.4 MG/DL (8.5-10.1); CARBON DIOXIDE LEVEL 27 MEQ/L (21-32); CHLORIDE LEVEL 105 MEQ/L (98-107); CREATININE FOR GFR 0.73 MG/DL (0.55-1.30); GLOMERULAR FILTRATION RATE > 60.0 (>60); GLUCOSE, FASTING 89 MG/DL (70-100); POTASSIUM SERUM 4.1 MEQ/L (3.5-5.1); SODIUM LEVEL 141 MEQ/L (136-145); TOTAL PROTEIN 6.7 GM/DL (6.4-8.2)
== END ==
LOC: M LAB 09:50
PROVIDERS: ATTEND Internal Medicine Gastroenterology
DX: K90.0 Celiac disease (principal); K62.5 Hemorrhage of anus and rectum; R94.5 Abnormal results of liver function studies; R19.7 Diarrhea, unspecified

== ENCOUNTER → 2019-07-12 | Outpatient (CLI) | payer OTHER ==
[2019-07-12 12:41] LABS: C REACTIVE PROTEIN QUANTITATIV < 0.30 MG/DL (0.00-0.30); CPK CREATINE PHOSPHOKINASE 78 U/L (26-192); TOTAL PROTEIN 7.1 GM/DL (6.4-8.2)
[2019-07-16 14:07] LABS: ANTI RIBOSOMAL ANTIBODIES <0.2 AI (0.0-0.9); ANTI-SACCHAROMYCES CEREV. IgA <20.0 Units (0.0-24.9); ANTI-SACCHAROMYCES CEREV. IgG <20.0 Units (0.0-24.9); ENDOMYSIAL ABY IgA Negative (Negative); LIVER-KIDNEY MICROSOMAL ABY <20.1 Units (0.0-20.0); TISSUE TRANSGLUTAMINASE IgA <2 U/mL (0-3); TISSUE TRANSGLUTAMINASE IgG <2 U/mL (0-5)
[2019-07-17 00:06] LABS: ANCA-ATYPICAL <1:20 titer (Neg:<1:20); ANTI-SMOOTH MUSCLE ANTIBODY 6 Units (0-19); ANTINUCLEAR ANTIBODIES DIRECT Negative (Negative); CYTOPLASMIC NEUTROP AB ANCA-C <1:20 titer (Neg:<1:20); PERINUCLEAR AB ANCA-P <1:20 titer (Neg:<1:20)
[2019-07-17 10:56] LABS: ALBUMIN 4.25 GM/DL (3.29-5.55); ALBUMIN % 59.9 % (55.8-66.1); ALPHA-1-GLOBULIN % 4.8 % (2.9-4.9); ALPHA-1-GLOBULINS 0.34 GM/DL (0.17-0.41); ALPHA-2-GLOBULINS 0.84 GM/DL (0.42-0.99); ALPHA-2-GLOBULINS % 11.8 % (7.1-11.8); BETA-1-GLOBULINS 0.41 GM/DL (0.28-0.60); BETA-1-GLOBULINS % 5.8 % (4.7-7.2); BETA-2-GLOBULINS % 5.7 % (3.2-6.5); GAMMA GLOBULINS 0.85 GM/DL (0.65-1.58)
[2019-07-17 10:59] LABS: DRVV SCREEN 35.5 SEC
[2019-07-17 11:02] LABS: PTT LUPUS TYPE ANTICOAG SCREEN 0.9 (0-1.2)
== END ==
LOC: M LAB 11:16
PROVIDERS: ATTEND Internal Medicine Gastroenterology
DX: R10.11 Right upper quadrant pain (principal)

== ENCOUNTER → 2019-08-07 | Outpatient (REF) | LOC: M LAB LCGH 15:30 | PROVIDERS: ATTEND Nurse Practitioner Family | DX: L57.0 Actinic keratosis (principal) ==

== ENCOUNTER 2019-08-17 12:21 | Emergency (ER) | payer MEDICARE, OTHER ==
[~2019-08-17] VITALS: Ht 157.5 cm; Wt 87.7 kg
[~2019-08-17 12:21] MED LIST changes: -OMEP40CA2 PO; +OMEP40CA97 PO; -RIZA10TA4 PO; +RIZA10TA58 PO
[2019-08-17 12:55] LABS: BASO % 0.5 % (0.0-1.0); EOS # 0.2 10^3/uL (0.0-0.5); EOS % 2.7 % (0.0-3.0); HEMATOCRIT 43.2 % (36.0-47.0); HEMOGLOBIN 14.7 g/dl (12.0-15.5); LYMPH # 2.4 10^3/uL (1.5-5.0); LYMPH % 30.8 % (24.0-44.0); MEAN CORPUSCULAR VOLUME 93.9 fl (80.0-96.0); MONO # 0.5 10^3/uL (0.0-0.8); MONO % 6.8 % (0.0-5.0); NEUTROPHILS # 4.6 10^3/uL (1.5-8.5); NEUTROPHILS % 58.9 % (36.0-66.0); PLATELET COUNT, AUTOMATED 277 10^3/uL (150-450); WHITE BLOOD COUNT 7.8 10^3/uL (4.0-10.0)
[2019-08-17] MEDS ORDERED: METOCLOPRAMIDE INJ 10MG/2ML VIAL (J2765) As Ordered ONE (12:58)
[2019-08-17] MEDS ORDERED: METOCLOPRAMIDE INJ 10MG/2ML VIAL (J2765) IV ONE (13:00)
[2019-08-17] MEDS: HYDROMORPHONE HCL 0.5 MG/ 0.5 ML SYRINGE (J1170 PER 1) IV PRN ×2 (13:03→13:29)
--- NOTE | 2019-08-17 13:04 | REP ---
CT brain: 08/18/2019. Indication: Altered mental status. Stroke. Comparison: 12/12/2018. Technique: Unenhanced axial CT images of the brain were obtained from skull base to vertex. Findings: The patient is status post occipital cranioplasty. There is no acute intracranial hemorrhage, acute cortical infarction, hydrocephalus or significant mass effect. Asymmetry of the lateral ventricles is stable. The descent of the cerebellar tonsils through the surgical defect and foramen magnum is stable. Impression: No acute intracranial process. Electronically Signed by Yury Moseley DO 08/17/2019 12:55 P
--- NOTE | 2019-08-17 13:17 | REP ---
Portable chest x-ray: Single view. History: Chest pain Comparison study: January 18, 2019. Findings: Monitoring electrodes overlie the chest. There is a loop recorder projecting over the left heart. The lungs are well inflated and clear. Heart size is normal. Pulmonary vasculature is not increased. No significant bony abnormality is seen. Impression: Loop recorder visible. Negative portable chest x-ray. Electronically Signed by Alton Coleman MD 08/17/2019 01:08 P
[2019-08-17 13:26] LABS: ALBUMIN 4.2 GM/DL (3.2-5.2); ALT/SGPT 52 U/L (12-78); BILIRUBIN,DIRECT 0.1 MG/DL (0.0-0.2); BILIRUBIN,TOTAL 0.5 MG/DL (0.2-1.0); BLOOD UREA NITROGEN 9 MG/DL (7-18); CALCIUM LEVEL 9.1 MG/DL (8.5-10.1); CARBON DIOXIDE LEVEL 26 MEQ/L (21-32); CHLORIDE LEVEL 108 MEQ/L (98-107); CK-MB VALUE MASS < 1.0 NG/ML (<3.6); CPK CREATINE PHOSPHOKINASE 106 U/L (26-192); GLOMERULAR FILTRATION RATE > 60.0 (>60); GLUCOSE, FASTING 92 MG/DL (70-100); MB/CK RELATIVE INDEX 0.94 (< OR =4); POTASSIUM SERUM 3.8 MEQ/L (3.5-5.1); SODIUM LEVEL 140 MEQ/L (136-145); TOTAL PROTEIN 7.4 GM/DL (6.4-8.2); TROPONIN I < 0.02 NG/ML (< 0.10)
[2019-08-17] MEDS ORDERED: KETOROLAC 30 MG/ML VIAL (J1885) IV ONE (13:45)
[2019-08-17] MEDS ORDERED: diphenhydrAMINE INJ 50MG/ML VIAL (J1200) IV STA (13:47)
[2019-08-17 14:01] VITALS: BP 127/59
--- NOTE | 2019-08-17 20:13 | ECGEPIP ---
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
== END 2019-08-17 14:15 | disposition short-term general hospital (02) ==
LOC: M ED 12:21
DX: G93.5 Compression of brain (principal); J45.909 Unspecified asthma, uncomplicated; K90.0 Celiac disease; I49.8 Other specified cardiac arrhythmias; Z98.2 Presence of cerebrospinal fluid drainage device; Z88.5 Allergy status to narcotic agent; Z88.8 Allergy status to other drugs, medicaments and biological substances
CPT/HCPCS: 70450; 71045; 80048; 80076; 82550; 82553; 84443; 84484; 85025; 87486; 87581; 87633; 87798; 93005; 93041; 94760; 96374; 96375; 99285; J1170; J1200; J1885; J2765

== ENCOUNTER → 2019-08-20 | Outpatient (CLI) | payer MEDICARE, OTHER ==
[2019-08-20 16:39] LABS: BASO # 0.1 10^3/uL (0.0-0.2); BASO % 0.7 % (0.0-1.0); EOS # 0.2 10^3/uL (0.0-0.5); EOS % 3.2 % (0.0-3.0); HEMOGLOBIN 13.7 g/dl (12.0-15.5); LYMPH # 1.7 10^3/uL (1.5-5.0); LYMPH % 22.7 % (24.0-44.0); MEAN CORPUSCULAR HEMOGLOBIN 31.9 pg (27.0-33.0); MEAN CORPUSCULAR HGB CONC 34.3 g/dl (32.0-36.5); MEAN CORPUSCULAR VOLUME 93.2 fl (80.0-96.0); MONO # 0.5 10^3/uL (0.0-0.8); MONO % 6.3 % (0.0-5.0); PLATELET COUNT, AUTOMATED 276 10^3/uL (150-450); RED BLOOD COUNT 4.29 10^6/uL (4.00-5.40); WHITE BLOOD COUNT 7.5 10^3/uL (4.0-10.0)
[2019-08-20 17:08] LABS: ALBUMIN 4.2 GM/DL (3.2-5.2); ALT/SGPT 206 U/L (12-78); BILIRUBIN,TOTAL 0.4 MG/DL (0.2-1.0); BLOOD UREA NITROGEN 10 MG/DL (7-18); C REACTIVE PROTEIN QUANTITATIV < 0.30 MG/DL (0.00-0.30); CALCIUM LEVEL 9.8 MG/DL (8.5-10.1); CARBON DIOXIDE LEVEL 27 MEQ/L (21-32); CHLORIDE LEVEL 108 MEQ/L (98-107); CREATININE FOR GFR 0.77 MG/DL (0.55-1.30); GLOMERULAR FILTRATION RATE > 60.0 (>60); GLUCOSE, FASTING 94 MG/DL (70-100); SODIUM LEVEL 141 MEQ/L (136-145); TOTAL PROTEIN 7.4 GM/DL (6.4-8.2)
[2019-08-20 18:30] LABS: ERYTHROCYTE SEDIMENTATION RATE 24 mm/hr (0-20)
== END ==
LOC: M LAB 15:58
PROVIDERS: ATTEND Physician Assistant
DX: Q07.02 Arnold-Chiari syndrome with hydrocephalus (principal)

== ENCOUNTER 2019-08-24 15:24 | Emergency (ER) | payer MEDICARE, OTHER ==
[~2019-08-24] VITALS: Ht 157.5 cm; Wt 8.4 kg
[~2019-08-24 15:24] MED LIST changes: -PROHANCE 279.3MG/ML 15ML VIAL (A9576) As Ordered ONE; -PROHANCE 279.3MG/ML 5ML VIAL (A9576) As Ordered ONE
[2019-08-24] MEDS ORDERED: diphenhydrAMINE INJ 50MG/ML VIAL (J1200) IV STA (16:43)
[2019-08-24 16:52] LABS: HEMATOCRIT 41.7 % (36.0-47.0); HEMOGLOBIN 14.4 g/dl (12.0-15.5); MEAN CORPUSCULAR HEMOGLOBIN 32.6 pg (27.0-33.0); MEAN CORPUSCULAR HGB CONC 34.5 g/dl (32.0-36.5); MEAN CORPUSCULAR VOLUME 94.3 fl (80.0-96.0); RED BLOOD COUNT 4.42 10^6/uL (4.00-5.40)
[2019-08-24 17:07] LABS: BLOOD UREA NITROGEN 12 MG/DL (7-18); CREATININE FOR GFR 0.85 MG/DL (0.55-1.30); GLUCOSE, FASTING 86 MG/DL (70-100)
[2019-08-24 17:08] LABS: C REACTIVE PROTEIN QUANTITATIV < 0.30 MG/DL (0.00-0.30); CALCIUM LEVEL 9.7 MG/DL (8.5-10.1); CARBON DIOXIDE LEVEL 25 MEQ/L (21-32); CHLORIDE LEVEL 108 MEQ/L (98-107); GLOMERULAR FILTRATION RATE > 60.0 (>60); POTASSIUM SERUM 3.9 MEQ/L (3.5-5.1); SODIUM LEVEL 141 MEQ/L (136-145)
[2019-08-24 17:10] LABS: HCG, SERUM QUALITATIVE NEGATIVE (NEGATIVE)
[2019-08-24] MEDS: MORPHINE 4 MG/ML 1ML VIAL/SYRINGE (J2270) IV PRN ×2 (17:50→19:50)
[2019-08-24] MEDS ORDERED: MORP15TA2 PO (19:10)
[2019-08-24 19:35] VITALS: BP 116/60
== END 2019-08-24 19:52 | disposition home or self-care (01) ==
LOC: M ED 15:24
DX: G93.5 Compression of brain (principal); M54.2 Cervicalgia; J45.909 Unspecified asthma, uncomplicated; K90.0 Celiac disease; I45.81 Long QT syndrome; G43.909 Migraine, unspecified, not intractable, without status migrainosus; Z88.5 Allergy status to narcotic agent; Z88.8 Allergy status to other drugs, medicaments and biological substances
CPT/HCPCS: 80048; 84703; 85027; 86140; 96374; 96375; 96376; 99284; J1200; J2270

== ENCOUNTER → 2019-08-24 | Outpatient (CLI) | payer OTHER ==
[~2019-08-24] MED LIST changes: +PROHANCE 279.3MG/ML 15ML VIAL (A9576) As Ordered ONE; +PROHANCE 279.3MG/ML 5ML VIAL (A9576) As Ordered ONE
--- NOTE | 2019-08-27 08:31 | REP ---
MRI cervical spine: 08/24/2019. Indication: Cervical radiculopathy. Comparison: None. Technique: Multiplanar shortened long TR sequences of the cervical spine were obtained including post-gadolinium imaging. 17 ml of IV ProHance were administered. Findings: There are no significant disc herniations or areas of significant spinal canal / neural foraminal narrowing. There is straightening of these cervical lordosis which is likely positional. Spondylosis is present most pronounced at C6/C7 without significant spinal canal / neural foraminal narrowing. Impression: No acute soft tissue injuries of the cervical spine. Electronically Signed by Yury Moseley DO 08/27/2019 08:23 A
== END ==
LOC: M RAD 11:57
PROVIDERS: ATTEND Physician Assistant
DX: M54.2 Cervicalgia (principal)
CPT/HCPCS: 72156; A9576

== ENCOUNTER → 2019-08-30 | Outpatient (CLI) | payer OTHER ==
[2019-08-30 16:00] LABS: HEMATOCRIT 45.2 % (36.0-47.0); HEMOGLOBIN 14.8 g/dl (12.0-15.5); MEAN CORPUSCULAR HEMOGLOBIN 31.4 pg (27.0-33.0); MEAN CORPUSCULAR HGB CONC 32.7 g/dl (32.0-36.5); PLATELET COUNT, AUTOMATED 233 10^3/uL (150-450); RED BLOOD COUNT 4.71 10^6/uL (4.00-5.40)
[2019-08-30 16:09] LABS: INR 1.01
[2019-08-30 16:33] LABS: ALT/SGPT 90 U/L (12-78); BILIRUBIN,TOTAL 0.4 MG/DL (0.2-1.0); BLOOD UREA NITROGEN 10 MG/DL (7-18); CALCIUM LEVEL 9.5 MG/DL (8.5-10.1); CARBON DIOXIDE LEVEL 27 MEQ/L (21-32); CHLORIDE LEVEL 104 MEQ/L (98-107); CREATININE FOR GFR 1.05 MG/DL (0.55-1.30); GLOMERULAR FILTRATION RATE > 60.0 (>60); GLUCOSE, FASTING 100 MG/DL (70-100); POTASSIUM SERUM 3.5 MEQ/L (3.5-5.1); SODIUM LEVEL 140 MEQ/L (136-145); TOTAL PROTEIN 7.5 GM/DL (6.4-8.2)
== END ==
LOC: M LAB 14:57
PROVIDERS: ATTEND Internal Medicine Gastroenterology
DX: R94.5 Abnormal results of liver function studies (principal); K92.1 Melena

== ENCOUNTER → 2019-11-06 | Outpatient (CLI) | payer MEDICARE, OTHER ==
[2019-11-06 12:47] LABS: BASO # 0.1 10^3/uL (0.0-0.2); EOS # 0.2 10^3/uL (0.0-0.5); EOS % 3.2 % (0.0-3.0); HEMOGLOBIN 14.5 g/dl (12.0-15.5); LYMPH # 2.1 10^3/uL (1.5-5.0); LYMPH % 30.6 % (24.0-44.0); MEAN CORPUSCULAR HEMOGLOBIN 31.7 pg (27.0-33.0); MEAN CORPUSCULAR HGB CONC 33.7 g/dl (32.0-36.5); MEAN CORPUSCULAR VOLUME 93.9 fl (80.0-96.0); MONO # 0.5 10^3/uL (0.0-0.8); MONO % 7.3 % (0.0-5.0); NEUTROPHILS # 3.9 10^3/uL (1.5-8.5); NEUTROPHILS % 57.5 % (36.0-66.0); PLATELET COUNT, AUTOMATED 344 10^3/uL (150-450); RED BLOOD COUNT 4.58 10^6/uL (4.00-5.40); WHITE BLOOD COUNT 6.8 10^3/uL (4.0-10.0)
[2019-11-06 13:27] LABS: ERYTHROCYTE SEDIMENTATION RATE 21 mm/hr (0-20)
[2019-11-06 13:35] LABS: ALBUMIN 4.1 GM/DL (3.2-5.2); ALT/SGPT 60 U/L (12-78); BILIRUBIN,DIRECT < 0.1 MG/DL (0.0-0.2); BILIRUBIN,TOTAL 0.4 MG/DL (0.2-1.0); BLOOD UREA NITROGEN 11 MG/DL (7-18); C REACTIVE PROTEIN QUANTITATIV < 0.30 MG/DL (0.00-0.30); CALCIUM LEVEL 9.2 MG/DL (8.5-10.1); CARBON DIOXIDE LEVEL 22 MEQ/L (21-32); CHLORIDE LEVEL 108 MEQ/L (98-107); CREATININE FOR GFR 0.69 MG/DL (0.55-1.30); GLOMERULAR FILTRATION RATE > 60.0 (>60); GLUCOSE, FASTING 86 MG/DL (70-100); LIPASE 157 U/L (73-393); POTASSIUM SERUM 4.2 MEQ/L (3.5-5.1); SODIUM LEVEL 138 MEQ/L (136-145); TOTAL PROTEIN 7.6 GM/DL (6.4-8.2)
== END ==
LOC: M LAB 11:39
PROVIDERS: ATTEND Physician Assistant
DX: A08.39 Other viral enteritis (principal); R94.5 Abnormal results of liver function studies; K92.1 Melena

== ENCOUNTER → 2019-11-06 | Outpatient (CLI) | payer MEDICARE, OTHER ==
[2019-11-06 12:46] LABS: HEMATOCRIT 44.5 % (36.0-47.0); HEMOGLOBIN 14.5 g/dl (12.0-15.5); MEAN CORPUSCULAR HGB CONC 32.6 g/dl (32.0-36.5); MEAN CORPUSCULAR VOLUME 95.1 fl (80.0-96.0); PLATELET COUNT, AUTOMATED 342 10^3/uL (150-450); RED BLOOD COUNT 4.68 10^6/uL (4.00-5.40); WHITE BLOOD COUNT 6.8 10^3/uL (4.0-10.0)
[2019-11-06 13:02] LABS: INR 1.02; PROTHROMBIN TIME 13.1 SECONDS (11.8-14.0)
[2019-11-06 13:26] LABS: ALT/SGPT 60 U/L (12-78); BILIRUBIN,TOTAL 0.4 MG/DL (0.2-1.0); BLOOD UREA NITROGEN 10 MG/DL (7-18); CALCIUM LEVEL 9.4 MG/DL (8.5-10.1); CARBON DIOXIDE LEVEL 23 MEQ/L (21-32); CHLORIDE LEVEL 108 MEQ/L (98-107); CREATININE FOR GFR 0.72 MG/DL (0.55-1.30); GLOMERULAR FILTRATION RATE > 60.0 (>60); GLUCOSE, FASTING 88 MG/DL (70-100); POTASSIUM SERUM 4.2 MEQ/L (3.5-5.1); SODIUM LEVEL 140 MEQ/L (136-145); TOTAL PROTEIN 7.6 GM/DL (6.4-8.2)
== END ==
LOC: M LAB 11:45
PROVIDERS: ATTEND Internal Medicine Gastroenterology
DX: R94.5 Abnormal results of liver function studies (principal); K92.1 Melena

== ENCOUNTER → 2019-11-22 | Outpatient (CLI) | payer MEDICARE, MEDICAID ==
--- NOTE | 2019-11-22 12:12 | REP ---
PA and lateral chest: Comparisons are 08/12/2019 and 01/18/2019. The the lung alcantara are clear. The cardiac size is normal. The danyelle, mediastinum, and skeletal structures are unremarkable. There is a loop recorder in the anterior chest wall, unchanged from 08/12/2019. Impression: Negative PA and lateral chest. There are no interval changes. Electronically Signed by Dave Vidal MD 11/22/2019 12:03 P
== END ==
LOC: M RAD 11:25
PROVIDERS: ATTEND Family Medicine
DX: J20.9 Acute bronchitis, unspecified (principal)

== ENCOUNTER → 2019-12-24 | Outpatient (CLI) | payer MEDICARE, MEDICAID ==
[2019-12-24 12:38] LABS: HEMATOCRIT 41.2 % (36.0-47.0); HEMOGLOBIN 14.1 g/dl (12.0-15.5); MEAN CORPUSCULAR HEMOGLOBIN 31.8 pg (27.0-33.0); MEAN CORPUSCULAR HGB CONC 34.2 g/dl (32.0-36.5); MEAN CORPUSCULAR VOLUME 92.8 fl (80.0-96.0); PLATELET COUNT, AUTOMATED 278 10^3/uL (150-450); RED BLOOD COUNT 4.44 10^6/uL (4.00-5.40); WHITE BLOOD COUNT 6.1 10^3/uL (4.0-10.0)
[2019-12-24 12:50] LABS: INR 0.98; PROTHROMBIN TIME 12.7 SECONDS (11.8-14.0)
[2019-12-24 13:35] LABS: ALBUMIN 4.2 GM/DL (3.2-5.2); ALT/SGPT 73 U/L (12-78); BILIRUBIN,TOTAL 0.6 MG/DL (0.2-1.0); BLOOD UREA NITROGEN 12 MG/DL (7-18); CALCIUM LEVEL 9.6 MG/DL (8.5-10.1); CARBON DIOXIDE LEVEL 25 MEQ/L (21-32); CHLORIDE LEVEL 107 MEQ/L (98-107); CREATININE FOR GFR 0.62 MG/DL (0.55-1.30); GLOMERULAR FILTRATION RATE > 60.0 (>60); GLUCOSE, FASTING 90 MG/DL (70-100); SODIUM LEVEL 139 MEQ/L (136-145); TOTAL PROTEIN 7.3 GM/DL (6.4-8.2)
== END ==
LOC: M LAB 11:35
PROVIDERS: ATTEND Internal Medicine Gastroenterology
DX: R94.5 Abnormal results of liver function studies (principal); K92.1 Melena; R11.2 Nausea with vomiting, unspecified

== ENCOUNTER → 2020-01-02 | Outpatient (REF) | payer MEDICARE, OTHER ==
[~2020-01-02] MED LIST changes: +DOXY100C37 PO
== END ==
LOC: M PLALAB 14:42
PROVIDERS: ATTEND Obstetrics & Gynecology
DX: Z12.4 Encounter for screening for malignant neoplasm of cervix (principal)
CPT/HCPCS: G0123; G0463

== ENCOUNTER → 2020-01-03 | Outpatient (CLI) | payer MEDICARE, OTHER ==
[~2020-01-03] MED LIST changes: -DOXY100C37 PO
--- NOTE | 2020-01-03 11:14 | REP ---
PELVIC ULTRASOUND: Real-time sonographic evaluation of the pelvis is performed. Bladder measures 13.5 x 5.3 x 10.7 cm. The uterus measures 11.2 x 3.2 x 5.0 cm. Endometrial thickness is 3 mm. IUD is seen in the endometrial canal. Right ovary measures 3.5 x 2.3 x 3.5 cm and left ovary 4.6 x 4.1 x 3.4 cm. Complex follicle in the right ovary measures 2.1 cm. Complex cystic structure in the left ovary measures 2.8 x 2.6 x 2.1 cm with internal septations and echoes likely representing a hemorrhagic dominant follicle or small cyst. No free fluid is seen. There is no evidence of ovarian torsion bilaterally with duplex Doppler evaluation. IMPRESSION: There is a small complex cystic structure in each ovary most consistent with hemorrhagic dominant follicles/functional cysts, maximum diameter on the right 2.1 cm and left 2.8 cm. IUD is seen within the endometrial canal. Electronically Signed by Dave Ta MD 01/03/2020 08:04 P
== END ==
LOC: M RAD 09:32
PROVIDERS: ATTEND Obstetrics & Gynecology
DX: R10.2 Pelvic and perineal pain (principal)

== ENCOUNTER 2020-01-28 18:16 | Emergency (ER) | payer MEDICARE, OTHER ==
[2020-01-28] MEDS ORDERED: NS 1,000 ML IV ONE (18:45)
[2020-01-28] MEDS ORDERED: ONDANSETRON 4MG/2ML VIAL (J2405) IV ONE (18:45)
[2020-01-28] MEDS ORDERED: MORPHINE 4 MG/ML 1ML VIAL/SYRINGE (J2270) IV ONE ×2 (18:45→19:30)
[2020-01-28 19:02] LABS: BASO # 0.1 10^3/uL (0.0-0.2); BASO % 0.8 % (0.0-1.0); EOS # 0.2 10^3/uL (0.0-0.5); EOS % 3.8 % (0.0-3.0); HEMATOCRIT 40.7 % (36.0-47.0); HEMOGLOBIN 13.7 g/dl (12.0-15.5); LYMPH # 2.2 10^3/uL (1.5-5.0); LYMPH % 35.9 % (24.0-44.0); MEAN CORPUSCULAR HEMOGLOBIN 31.3 pg (27.0-33.0); MEAN CORPUSCULAR HGB CONC 33.7 g/dl (32.0-36.5); MEAN CORPUSCULAR VOLUME 92.9 fl (80.0-96.0); MONO # 0.4 10^3/uL (0.0-0.8); MONO % 6.5 % (0.0-5.0); NEUTROPHILS # 3.2 10^3/uL (1.5-8.5); NEUTROPHILS % 52.8 % (36.0-66.0); PLATELET COUNT, AUTOMATED 278 10^3/uL (150-450); RED BLOOD COUNT 4.38 10^6/uL (4.00-5.40)
[2020-01-28 19:27] LABS: ALT/SGPT 49 U/L (12-78); BILIRUBIN,DIRECT < 0.1 MG/DL (0.0-0.2); BILIRUBIN,TOTAL 0.3 MG/DL (0.2-1.0); LIPASE 140 U/L (73-393); TOTAL PROTEIN 7.4 GM/DL (6.4-8.2)
[2020-01-28] MEDS ORDERED: HYDROMORPHONE HCL 0.5 MG/ 0.5 ML SYRINGE (J1170 PER 1) IV ONE (20:15)
--- NOTE | 2020-01-28 20:33 | REPVR ---
PROCEDURE INFORMATION: Exam: US Pelvis Complete, Transabdominal and US Pelvis, Transvaginal and US Duplex Artery and Vein, Ovaries, Complete Exam date and time: 01/28/2020 8:11 PM Age: 29 years old Clinical indication: Pelvic pain; Additional info: Sudden lower abd pain HX of cyst R/O ovarian torsion TECHNIQUE: Imaging protocol: Real-time transabdominal and transvaginal pelvic ultrasound (complete) with image documentation. Transvaginal imaging was used for better evaluation of the endometrium and adnexa. Real-time duplex ultrasound scan of the arterial and venous flow of the ovaries with B-mode, color Doppler flow and spectral waveform analysis. COMPARISON: US PELVIC NON-OB COMPLETE 01/03/2020 9:39 AM FINDINGS: Uterus/cervix: 9.9 x 3.8 x 4.6 cm. Normal endometrial thickness, measuring approximately 5 mm. Intrauterine device in adequate position. Right ovary: 4.4 x 2.7 x 3 cm. No mass. Normal arterial and venous ovarian blood flow. Left ovary: 4.3 x 2.9 x 1.8 cm. 2 x 1.9 x 1.8 cm complex cystic lesion, likely a corpus luteal cyst. No solid mass. Normal arterial and venous ovarian blood flow. Free fluid: None. Bladder: Normal. IMPRESSION: No acute sonographic findings. Electronically signed by: Jin Persaud On 01/28/2020 20:31:34 PM
[2020-01-28] MEDS ORDERED: ISOVUE-370 76% 100ML VIAL (Q9967) As Ordered ONE (20:43)
--- NOTE | 2020-01-28 21:32 | REPVR ---
PROCEDURE INFORMATION: Exam: CT Abdomen And Pelvis With Contrast Exam date and time: 01/28/2020 8:46 PM Age: 29 years old Clinical indication: Abdominal pain; Generalized; Additional info: Lower abd pain TECHNIQUE: Imaging protocol: Computed tomography of the abdomen and pelvis with intravenous contrast. Axial, coronal and sagittal reformatted images were created and reviewed. Radiation optimization: All CT scans at this facility use at least one of these dose optimization techniques: automated exposure control; mA and/or kV adjustment per patient size (includes targeted exams where dose is matched to clinical indication); or iterative reconstruction. Contrast material: ISOVUE 370; Contrast volume: 100 ml; Contrast route: IV; COMPARISON: CT ABD PELVIS W/O CONTRAST 08/15/2018 7:18 PM FINDINGS: Liver: Unremarkable. Gallbladder and bile ducts: Status post cholecystectomy. No biliary ductal dilatation. Pancreas: Unremarkable. Spleen: Coarse calcified splenic granuloma. Adrenals: Unremarkable. Kidneys and ureters: No mass. No radiodense calculi. No hydronephrosis. Stomach and bowel: Moderate amount of retained stool in the colon. No obstruction. No bowel wall thickening. No pneumatosis. Appendix: Normal. Intraperitoneal space: Trace nonspecific free pelvic fluid, likely physiologic. No organized fluid collection. No free air. Vasculature: Unremarkable. No aneurysm. Lymph nodes: No pathologically enlarged lymph nodes. Bladder: Unremarkable. Reproductive: Probable involuting right ovarian corpus luteal cyst. Intrauterine device in adequate position. Bones/joints: No acute osseous abnormality. Soft tissues: Unremarkable. IMPRESSION: 1. Probable involuting right ovarian corpus luteal cyst. 2. Additional findings, as above. Electronically signed by: Jin Persaud On 01/28/2020 21:32:22 PM
[2020-01-28] MEDS ORDERED: DOXY100C37 PO (21:59)
[2020-01-28] MEDS ORDERED: DOXYCYCLINE HYCLATE 100 MG TAB PO ONE (22:00)
[2020-01-28] MEDS ORDERED: LIDOCAINE 1% SDV 5 ML VIAL DILUENT ONE (22:00)
[2020-01-28] MEDS ORDERED: cefTRIAXone SOD 250 MG VIAL (J0696) IM ONE (22:00)
[2020-01-28 22:11] VITALS: BP 129/66
[2020-01-28 23:20] LABS: CHLAMYDIA DNA AMPLIFICATION NEGATIVE (NEGATIVE); GC DNA AMPLIFICATION NEGATIVE (NEGATIVE)
== END 2020-01-28 22:24 | disposition home or self-care (01) ==
LOC: M ED 18:16
DX: N83.11 Corpus luteum cyst of right ovary (principal); R10.9 Unspecified abdominal pain; G43.909 Migraine, unspecified, not intractable, without status migrainosus; J45.909 Unspecified asthma, uncomplicated; K90.0 Celiac disease; Q07.00 Arnold-Chiari syndrome without spina bifida or hydrocephalus; J30.2 Other seasonal allergic rhinitis; Z97.5 Presence of (intrauterine) contraceptive device; Z79.899 Other long term (current) drug therapy; Z88.5 Allergy status to narcotic agent; Z88.8 Allergy status to other drugs, medicaments and biological substances
CPT/HCPCS: 74177; 76830; 76856; 80047; 80076; 81001; 83690; 84702; 85025; 87210; 87491; 87591; 93976; 96361; 96372; 96374; 96375; 96376; 99284; J0696; J1170; J2270; J2405; Q9967